=== PATIENT | male | born 1975 | race African-American/Black ===

== ENCOUNTER 2018-12-09 11:39 | Emergency (ER) | payer MEDICAID ==
[~2018-12-09] VITALS: Ht 185.4 cm; Wt 71.0 kg
[~2018-12-09 11:39] MED LIST: LEVOTHYROXINE
[2018-12-09 17:21] VITALS: BP 133/74
== END 2018-12-09 17:26 | disposition home or self-care (01) ==
LOC: ER 11:39
DX: S20.212A Contusion of left front wall of thorax, initial encounter (principal); Y04.0XXA Assault by unarmed brawl or fight, initial encounter; Y93.89 Activity, other specified; Y92.89 Other specified places as the place of occurrence of the external cause; Y99.8 Other external cause status
CPT/HCPCS: 71045; 99283

== ENCOUNTER 2022-01-18 18:42 | Emergency (ER) | payer MEDICAID ==
[~2022-01-18] VITALS: Ht 167.6 cm; Wt 77.0 kg
[2022-01-18 19:00] VITALS: BP 132/69
[2022-01-19 01:09] LABS: BASOPHILS % 0.5 % (0.0-2.0); EOSINOPHILS % 4.5 % (0.0-5.0); HEMATOCRIT. 38.3 % (42.0-52.0); HEMOGLOBIN. 12.2 g/dL (14.0-18.0); LYMPHOCYTES % 20.4 % (20.0-50.0); MEAN CORPUSCULAR HEMOGLOBIN 22.1 pg (28.0-32.0); MEAN CORPUSCULAR VOLUME 69.6 fL (80.0-94.0); MEAN PLATELET VOLUME 8.8 fl (7.4-10.4); MONOCYTES % 12.9 % (2.0-8.0); NEUTROPHILS % 61.7 % (40.0-76.0); PLATELET 131 x1000/uL (130-400); RED BLOOD CELL COUNT 5.51 mill/uL (4.7-6.1); RED CELL DISTRIBUTION WIDTH 14.7 % (11.6-14.6)
[2022-01-19 01:16] LABS: CHLORIDE 102 mEq/L (98-107)
[2022-01-19 03:22] LABS: PLATELET ESTIMATE NORMAL
[2022-01-19] MEDS ORDERED: NAPR-681 MT (04:37)
[2022-01-19] MEDS ORDERED: CYCL10TA21 MT (04:37)
== END 2022-01-19 05:19 | disposition home or self-care (01) ==
LOC: ER 18:42
DX: R07.89 Other chest pain (principal); E03.9 Hypothyroidism, unspecified
CPT/HCPCS: 36415; 71045; 80053; 84484; 85025; 99284